=== PATIENT | male | born 1975 | race Hispanic/Latino ===

== ENCOUNTER 2017-06-17 23:40 | Emergency (ER) | payer OTHER ==
[~2017-06-17] VITALS: Ht 167.6 cm; Wt 75.0 kg
[2017-06-18] MEDS ORDERED: LIPITOR20 M1 PO (00:13)
[2017-06-18] MEDS ORDERED: METFORMIN500 MG PO (00:13)
[2017-06-18] MEDS ORDERED: NAPROSYN500 MG PO (01:23)
[2017-06-18] MEDS ORDERED: FLEXERIL PO (01:23)
[2017-06-18 01:32] VITALS: BP 132/89
== END 2017-06-18 01:32 | DRG 552 ==
LOC: ED 23:40
DX: S16.1XXA Strain of muscle, fascia and tendon at neck level, initial encounter (principal); S33.5XXA Sprain of ligaments of lumbar spine, initial encounter; E11.9 Type 2 diabetes mellitus without complications; E78.5 Hyperlipidemia, unspecified; V49.40XA Driver injured in collision with unspecified motor vehicles in traffic accident, initial encounter; M47.816 Spondylosis without myelopathy or radiculopathy, lumbar region